=== PATIENT | female | born 1990 | race Caucasian/White ===

== ENCOUNTER 2020-03-26 13:51 | Emergency (ER) | payer SELFPAY ==
[2020-03-26 14:30] VITALS: BP 124/68; PULSE 102; RESP 18; TEMP 36.2; O2SAT 98; BMI 20.1
[2020-03-26 15:24] LABS: Add Urine Microscopic? YES; Bilirubin Urine Neg (Negative); Blood Urine 2+ (Negative); Glucose Urine UA Norm (Normal); Ketones Urine Negative (Negative); Leukocyte Esterase Urine 2+ (Negative); Nitrate Urine Negative (Negative); Protein Urine Neg (Negative); Specific Gravity, Urine 1.015 (1.005-1.030); Sulfosalicylic Acid Urine Trace (Negative); Urine Appearance Cloudy (CLEAR); Urine Color Yellow (Yellow); Urobilinogen Urine Neg (Negative); pH Urine 8 (5-7)
[2020-03-26 15:25] LABS: Add Urine Culture? Yes; Bacteria Urine 3+ /hpf; RBC Urine 15-25 /hpf (0-2); Squamous Epithelial Cell Urine 0-4 /hpf (0-5); WBC Urine >100 /hpf (0-5)
--- NOTE | 2020-03-26 16:13 | CTR_ITS ---
PROCEDURE INFORMATION: Exam: CT Abdomen And Pelvis Without Contrast Exam date and time: 03/26/2020 4:36 PM Age: 29 years old Clinical indication: Abdominal pain; Right; Prior surgery; Surgery date: 6+ months; Surgery type: Appy; Patient HX: C/O R flank pain and burning urination TECHNIQUE: Imaging protocol: Computed tomography of the abdomen and pelvis without contrast. Radiation optimization: All CT scans at this facility use at least one of these dose optimization techniques: automated exposure control; mA and/or kV adjustment per patient size (includes targeted exams where dose is matched to clinical indication); or iterative reconstruction. COMPARISON: US abdomen limited [id number] 02/14/2018 8:19 AM RADIATION DOSE METRICS: Total DLP (mGy-cm): 539.65 FINDINGS: Liver: Small hypodense lesions are seen in segments III and VIII of the liver. The largest lesion measures 19 mm (segment III). Gallbladder and bile ducts: Normal. No calcified stones. No ductal dilation. Pancreas: Normal. No ductal dilation. Spleen: Normal. No splenomegaly. Adrenals: Normal. No mass. Kidneys and ureters: Mild right perinephric and periureteral fat stranding is noted. No renal stone or hydronephrosis. The left kidney appears normal. Stomach and bowel: Unremarkable. No obstruction. No mucosal thickening. Appendix: No evidence of appendicitis. Intraperitoneal space: Unremarkable. No free air. No significant fluid collection. Vasculature: Unremarkable. No abdominal aortic aneurysm. Lymph nodes: Unremarkable. No enlarged lymph nodes. Urinary bladder: Unremarkable as visualized. Reproductive: The uterus and ovaries appear normal. Bones/joints: Unremarkable. No acute fracture. Soft tissues: Unremarkable. CT/CT kidney stone [id number] IMPRESSION: 1. Possible right pyelonephritis, correlate with urinalysis. No renal stone is visualized. 2. Indeterminate hypodense liver lesions. Nonemergent CT or MRI liver protocol may allow further assessment. Radiation Dose CTDIVOL = (mGy): DLP = 539.65 (mGy-cm)
[2020-03-26 16:15] LABS: Anion Gap 15.1 (5-19); Blood Urea Nitrogen 7 mg/dL (6-20); Carbon Dioxide 25 mmol/L (22-29); Chloride 99 mmol/L (98-107); Glomerular Filtration Rate 118.2 mL/min (90-130); Potassium 4.1 mmol/L (3.5-5.1); Sodium 135 mmol/L (136-145)
[2020-03-26 16:16] LABS: Calcium 9.5 mg/dL (8.5-10.5); Glucose 116 mg/dL (65-115); Osmolality Calculated 279 mOsm/kg (285-295)
--- NOTE | 2020-03-26 16:17 | ED_ITS ---
Documented by User: Yara Carver 03/26/20 17:02 HPI - Female Genitourinary General: Chief complaint: Urogenital-Female Stated complaint: POSSIBLE UTI Time Seen by Provider: 03/26/20 14:57 Source: patient Mode of arrival: ambulatory Limitations: no limitations History of Present Illness: MD elicited complaint: dysuria and flank pain Onset (ago): day(s) (2) Location of symptoms: flank Severity: moderate Female Urogenital Radiation: R Flank Severity scale (1-10): 5 Quality of pain: dull and aching Consistency: constant Vaginal discharge: none Vaginal bleeding: none Urinary symptoms: Dysuria and Flank Pain Exacerbating factors: none Relieving factors: none Associated symptoms: Reports fevers/chills; Deny abdominal pain, short of breath, headache(s), nausea, rash, seizures, syncope, vaginal bleeding or vaginal discharge Treatment prior to arrival: none Sexual activity: Yes Patient : No Review of Systems General: Reports: 10 or more systems reviewed and unremarkable except in HPI and below Const: Reports: fever(s); Denies: chills, body aches, change in appetite or change in weight Card: Denies: chest pain, palpitations, irregular heart rhythm or syncope Resp: Denies: dyspnea, productive cough, non-productive cough, wheezing or pain on inspiration GI: Denies: abdominal pain, nausea or vomiting : Reports: flank pain, dysuria, urinary frequency and urinary urgency; Denies: vaginal discharge Musc: Denies: neck pain, back pain, extremity pain or extremity swelling Skin/Breast: Denies: rash Neuro: Denies: headache(s) Psych: Denies: suicidal ideation or homicidal ideation PFS ED PFSH: Family History Grandmother Hypertension maternal Mother Diabetes Thyroid condition Brother Seizure disorder Family/Other Colon cancer Maternal great aunt Breast cancer Maternal great aunt, cousin Patient denies medical problems Denies family history of: Cervical, uterine, ovarian cancer, DVT/PE. 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[place] Additional social history: Well balanced diet Physical Exam Const: COMMON NORMALS: no acute distress, average body habitus, patient oriented x3, no limitations, healthy appearing, alert and well nourished HENMT: COMMON NORMALS: normocephalic, atraumatic, hearing grossly normal bilaterally, external ears normal, EAC's normal, TM's normal bilaterally, Normal external nose present, Normal nasal mucous membranes and turbinates present, moist oral mucous membranes, oropharynx normal, dentition normal and gingiva normal HEAD & SCALP: normocephalic and atraumatic NOSE: Normal external nose present and Normal nasal mucous membranes and turbinates present EXTERNAL EAR: Yes external ears normal EXTERNAL AUDITORY CANAL: EAC's normal TYMPANIC MEMBRANE: TM's normal bilaterally Eye: COMMON NORMALS: Equal, round and reactive pupils present, EOMs intact bilaterally, conjunctivae normal, no scleral icterus, no papilledema, normal visual vargas by confrontation and fundi normal bilaterally CONJUNCTIVA: Yes conjunctivae normal PUPIL: Yes Equal, round and reactive pupils present DIRECT OPHTHALMOSCOPY: Yes no papilledema and Yes fundi normal bilaterally Neck/C-Spine: COMMON NORMALS: full ROM, no lymphadenopathy, supple, no meningeal signs, no JVD, Thyroid normal and No carotid bruits THYROID: Thyroid normal Lymph: LYMPHATIC: no lymphadenopathy noted Chest: COMMONS NORMALS: normal inspection of the chest, normal palpation of entire chest wall, normal inspection of the breasts and normal palpation of the breasts Resp: COMMON NORMALS: normal respiratory effort, No retractions, No use of accessory muscles, clear to auscultation bilaterally and percussion normal AUSCULTATION: clear to auscultation bilaterally PERCUSSION: percussion normal Cardio: COMMON NORMALS: no JVD, regular rate, regular rhythm, S1 normal heart sound present, S2 normal heart sound present, No gallops present (Cardio), No clicks present (Cardio), No murmurs present (Cardio), No rub (Cardio) and Peripheral pulses 2+ throughout RATE: regular rate RHYTHM: regular rhythm HEART SOUNDS: S1 normal heart sound present and S2 normal heart sound present PERIPHERAL PULSES: Peripheral pulses 2+ throughout GI: COMMON NORMALS: Normal to inspection, nondistended, normoactive bowel sounds present, Soft to palpation, non-tender, No hepatosplenomegaly present, no masses and no bruits PALPATION: Yes Soft to palpation and Yes No hepatosplenomegaly present : BLADDER/KIDNEY EXAM: Yes CVA tenderness SPECULUM EXAM - VAGINA: No vaginal bleeding OB/EXTERNAL & SPECULUM: No vaginal bleeding Back/Pelvis: COMMON NORMALS: thoracic and lumbar spine normal to inspection, no thoracic nor lumbar tenderness and thoraco-lumbar ROM normal GENERAL BACK: Yes CVA tenderness CVA tenderness: right Extremity: COMMON NORMALS: normal to inspection, full ROM, capillary refill normal, no joint enlargement, no clubbing, cyanosis or edema, no calf tenderness and no pedal edema Neuro: COMMON NORMALS: patient oriented x3, CN's II-XII intact bilaterally, moves all extremities, no focal motor deficits, no sensory deficits noted, deep tendon reflexes 2+ bilaterally and gait normal SENSORIUM/ORIENTATION: Yes alert MENINGEAL SIGNS: Yes no meningeal signs Psych: COMMON NORMALS: mental status grossly normal, Normal thought process present, cooperative, normal affect, speech normal, activity/motor behavior normal, denies hallucinations, denies homicidal ideation and denies suicidal ideation SPEECH: Yes normal speech THOUGHT PROCESS: Normal thought process present Skin: COMMON NORMALS: no rashes or lesions noted, no wounds, turgor normal, no jaundice, no petechiae and no mottling GENERAL SKIN EXAM: no rashes or lesions noted and turgor normal Course Vital Signs: Vital signs: Vital Signs Temperature 97.2 F L 03/26/20 14:30 Pulse Rate 68 03/26/20 18:51 Respiratory Rate 18 03/26/20 18:51 Blood Pressure 128/74 03/26/20 18:51 Pulse Oximetry 96 03/26/20 18:51 MDM - Female Lab Data: Labs: Lab Results 03/26/20 03/26/20 03/26/20 Range/Units 14:15 14:15 15:31 WBC Cancelled Corrected WBC Cancelled RBC Cancelled Hgb Cancelled Hct Cancelled MCV Cancelled MCH Cancelled MCHC Cancelled RDW Cancelled Plt Count Cancelled MPV Cancelled Gran % Cancelled Neut % (Auto) Cancelled Lymph % (Auto) Cancelled Meagher % (Auto) Cancelled Eos % (Auto) Cancelled Baso % (Auto) Cancelled Neut # (Auto) Cancelled Lymph # (Auto) Cancelled Meagher # (Auto) Cancelled Eos # (Auto) Cancelled Baso # (Auto) Cancelled Absolute Gran (aut o) Cancelled Nucleated RBC % (a uto) Cancelled Nucleated RBCs # Cancelled Sodium (136-145) mmol/L Potassium (3.5-5.1) mmol/L Chloride (98-107) mmol/L Carbon Dioxide (22-29) mmol/L Anion Gap (5-19) BUN (6-20) mg/dL Creatinine (0.5-0.9) mg/dL GFR Calculation (90-130) mL/min Glucose (65-115) mg/dL Calculated Osmolal ity (285-295) mOsm/k g Calcium (8.5-10.5) mg/dL Urine Color Yellow (Yellow) Urine Appearance Cloudy (CLEAR) Urine pH 8 H (5-7) Ur Specific Gravit y 1.015 (1.005-1.030) Urine Protein Neg (Negative) Urine Glucose (UA) Norm (Normal) Urine Ketones Negative (Negative) Urine Blood 2+ H (Negative) Urine Nitrate Negative (Negative) Urine Bilirubin Neg (Negative) Prot Sulfosalicyli c Acd Trace (Negative) Urine Urobilinogen Neg (Negative) mg/dL Ur Leukocyte Nivia ase 2+ H (Negative) Urine RBC 15-25 H (0-2) /hpf Urine WBC >100 H (0-5) /hpf Ur Squamous Epith Cells 0-4 H (0-5) /hpf Amorphous Sediment Not Reportable Urine Bacteria 3+ H (NONE) /hpf Urine HCG, Qual Negative (Negative) 03/26/20 03/26/20 Range/Units 15:31 16:28 WBC 9.4 Corrected WBC RBC 3.85 L Hgb 12.2 Hct 35.7 L MCV 92.7 MCH 31.7 MCHC 34.2 RDW 11.6 L Plt Count 220 MPV 9.2 Gran % Neut % (Auto) 79.8 Lymph % (Auto) 13.1 Meagher % (Auto) 6.2 Eos % (Auto) 0.4 Baso % (Auto) 0.2 Neut # (Auto) 7.51 Lymph # (Auto) 1.2 Meagher # (Auto) 0.6 Eos # (Auto) 0.0 Baso # (Auto) 0.0 Absolute Gran (aut o) Nucleated RBC % (a uto) 0 Nucleated RBCs # 0.0 Sodium 135 L (136-145) mmol/L Potassium 4.1 (3.5-5.1) mmol/L Chloride 99 (98-107) mmol/L Carbon Dioxide 25 (22-29) mmol/L Anion Gap 15.1 (5-19) BUN 7 (6-20) mg/dL Creatinine 0.6 (0.5-0.9) mg/dL GFR Calculation 118.2 (90-130) mL/min Glucose 116 H (65-115) mg/dL Calculated Osmolal ity 279 L (285-295) mOsm/k g Calcium 9.5 (8.5-10.5) mg/dL Urine Color (Yellow) Urine Appearance (CLEAR) Urine pH (5-7) Ur Specific Gravit y (1.005-1.030) Urine Protein (Negative) Urine Glucose (UA) (Normal) Urine Ketones (Negative) Urine Blood (Negative) Urine Nitrate (Negative) Urine Bilirubin (Negative) Prot Sulfosalicyli c Acd (Negative) Urine Urobilinogen (Negative) mg/dL Ur Leukocyte Nivia ase (Negative) Urine RBC (0-2) /hpf Urine WBC (0-5) /hpf Ur Squamous Epith Cells (0-5) /hpf Amorphous Sediment Urine Bacteria (NONE) /hpf Urine HCG, Qual (Negative) Discharge Plan Discharge Patient Disposition: Home Clinical Impression: Pyelonephritis, Cough Condition: Stable Prescriptions: New Tessalon Perles 100 mg capsule 100 mg PO BID PRN (Reason: cough) Qty: 20 RF: 0 levofloxacin 750 mg tablet 750 mg PO DAILY 5 Days Qty: 5 RF: 0 No Action Mavyret 100-40 mg tablet 3 tab PO TID RF: 0 Discharge Orders: Discharge Order (Routine); Ordered 03/26/20 Ordered By: Sarwat Dickerson Referrals: Franki Oconnor MD [Primary Care Provider] - Discharge Diet: Regular Discharge Activity: Resume usual activity Patient Instructions: Acute Pyelonephritis (ED) Activity Restrictions/Additional Instructions: Follow-up with medical provider as directed 7-10 days. Take medications as prescribed. Take [id number] Tylenol or ibuprofen for pain or fevers. Return to the ER or your medical provider if condition worsens. Please read and understand discharge instructions. If any questions, please ask. Discharge Date/Time: 03/26/20 18:53 Sign Out Sign Out Data: Patient Sign Out occurred on 03/26/20 at 17:12. Patient's care was discussed, and care was transferred from to ZACKARY Lucas. Coding Level of Care Code ED Adult [employer] In[employer] for Chg Fwd Exam Comprehensive Documented by User: ZACKARY Lucas 03/26/20 20:12 HPI - Female Genitourinary General: Chief complaint: Urogenital-Female Stated complaint: POSSIBLE UTI Time Seen by Provider: 03/26/20 14:57 History of Present Illness: HPI Narrative: Patient also was complaining to me that she has dry cough. No symptoms of shortness of breath or fevers. Review of Systems Resp: Reports: non-productive cough PFSH ED PFSH: Family History Grandmother Hypertension maternal Mother Diabetes Thyroid condition Brother Seizure disorder Family/Other Colon cancer Maternal great aunt Breast cancer Maternal great aunt, cousin Patient denies medical problems Denies family history of: Cervical, uterine, ovarian cancer, DVT/PE. 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 Physical exam shows a healthy 29-year-old female no acute distress pain. White blood cells were 9.4 and rest of CBC and CMP was unremarkable. UA showed multiple bacteria with many RBCs and WBCs. CT of abdomen showed no kidney stones but did show some pyelonephritis on the right side. Was also noted that she had a hypodense liver lesion and radiologist recommended possible further assessment with an MRI or CT. patient was given a shot of Rocephin while here in the ED and then sent h ome with a prescription for levofloxacin. I informed patient of liver findings mariana with her PCP about further evaluation and imaging to be performed outpatient. Patient was also given some Tessalon Perles for cough. Return to ED precautions given. Follow-up with PCP in 7 to 10 days. Patient understood and agreed with plan. Lab Data: Attestation: I reviewed the patient's lab results. Labs: Lab Results 03/26/20 03/26/20 03/26/20 Range/Units 14:15 14:15 15:31 WBC Cancelled Corrected WBC Cancelled RBC Cancelled Hgb Cancelled Hct Cancelled MCV Cancelled MCH Cancelled MCHC Cancelled RDW Cancelled Plt Count Cancelled MPV Cancelled Gran % Cancelled Neut % (Auto) Cancelled Lymph % (Auto) Cancelled Meagher % (Auto) Cancelled Eos % (Auto) Cancelled Baso % (Auto) Cancelled Neut # (Auto) Cancelled Lymph # (Auto) Cancelled Meagher # (Auto) Cancelled Eos # (Auto) Cancelled Baso # (Auto) Cancelled Absolute Gran (aut o) Cancelled Nucleated RBC % (a uto) Cancelled Nucleated RBCs # Cancelled Sodium (136-145) mmol/L Potassium (3.5-5.1) mmol/L Chloride (98-107) mmol/L Carbon Dioxide (22-29) mmol/L Anion Gap (5-19) BUN (6-20) mg/dL Creatinine (0.5-0.9) mg/dL GFR Calculation (90-130) mL/min Glucose (65-115) mg/dL Calculated Osmolal ity (285-295) mOsm/k g Calcium (8.5-10.5) mg/dL Urine Color Yellow (Yellow) Urine Appearance Cloudy (CLEAR) Urine pH 8 H (5-7) Ur Specific Gravit y 1.015 (1.005-1.030) Urine Protein Neg (Negative) Urine Glucose (UA) Norm (Normal) Urine Ketones Negative (Negative) Urine Blood 2+ H (Negative) Urine Nitrate Negative (Negative) Urine Bilirubin Neg (Negative) Prot Sulfosalicyli c Acd Trace (Negative) Urine Urobilinogen Neg (Negative) mg/dL Ur Leukocyte Nivia ase 2+ H (Negative) Urine RBC 15-25 H (0-2) /hpf Urine WBC >100 H (0-5) /hpf Ur Squamous Epith Cells 0-4 H (0-5) /hpf Amorphous Sediment Not Reportable Urine Bacteria 3+ H (NONE) /hpf Urine HCG, Qual Negative (Negative) 03/26/20 03/26/20 Range/Units 15:31 16:28 WBC 9.4 Corrected WBC RBC 3.85 L Hgb 12.2 Hct 35.7 L MCV 92.7 MCH 31.7 MCHC 34.2 RDW 11.6 L Plt Count 220 MPV 9.2 Gran % Neut % (Auto) 79.8 Lymph % (Auto) 13.1 Meagher % (Auto) 6.2 Eos % (Auto) 0.4 Baso % (Auto) 0.2 Neut # (Auto) 7.51 Lymph # (Auto) 1.2 Meagher # (Auto) 0.6 Eos # (Auto) 0.0 Baso # (Auto) 0.0 Absolute Gran (aut o) Nucleated RBC % (a uto) 0 Nucleated RBCs # 0.0 Sodium 135 L (136-145) mmol/L Potassium 4.1 (3.5-5.1) mmol/L Chloride 99 (98-107) mmol/L Carbon Dioxide 25 (22-29) mmol/L Anion Gap 15.1 (5-19) BUN 7 (6-20) mg/dL Creatinine 0.6 (0.5-0.9) mg/dL GFR Calculation 118.2 (90-130) mL/min Glucose 116 H (65-115) mg/dL Calculated Osmolal ity 279 L (285-295) mOsm/k g Calcium 9.5 (8.5-10.5) mg/dL Urine Color (Yellow) Urine Appearance (CLEAR) Urine pH (5-7) Ur Specific Gravit y (1.005-1.030) Urine Protein (Negative) Urine Glucose (UA) (Normal) Urine Ketones (Negative) Urine Blood (Negative) Urine Nitrate (Negative) Urine Bilirubin (Negative) Prot Sulfosalicyli c Acd (Negative) Urine Urobilinogen (Negative) mg/dL Ur Leukocyte Nivia ase (Negative) Urine RBC (0-2) /hpf Urine WBC (0-5) /hpf Ur Squamous Epith Cells (0-5) /hpf Amorphous Sediment Urine Bacteria (NONE) /hpf Urine HCG, Qual (Negative) Imaging Data: CT Abd/Pel: Attestation: I personally reviewed and interpreted this imaging study as follows: Radiologist's impression: [address] [address] [address] Scan Report Signed Patient: Chaya Manning Unit #: [id number] : 1990 Age/Sex: 29 / F ADM Date: 03/26 Loc: ER Room/Bed: Attending Dr: Ordering Provider/Ordering MD: Yara Carver NP Date of Service: 03/26/20 Procedure(s): CT kidney stone [id number] Accession Number(s): [id number] Report Number: [id number] PROCEDURE INFORMATION: Exam: CT Abdomen And Pelvis Without Contrast Exam date and time: 03/26/2020 4:36 PM Age: 29 years old Clinical indication: Abdominal pain; Right; Prior surgery; Surgery date: 6+ months; Surgery type: Appy; Patient HX: C/O R flank pain and burning urination TECHNIQUE: Imaging protocol: Computed tomography of the abdomen and pelvis without contrast. Radiation optimization: All CT scans at this facility use at least one of these dose optimization techniques: automated exposure control; mA and/or kV adjustment per patient size (includes targeted exams where dose is matched to clinical indication); or iterative reconstruction. COMPARISON: US abdomen limited [id number] 02/14/2018 8:19 AM RADIATION DOSE METRICS: Total DLP (mGy-cm): 539.65 FINDINGS: Liver: Small hypodense lesions are seen in segments III and VIII of the liver. The largest lesion measures 19 mm (segment III). Gallbladder and bile ducts: Normal. No calcified stones. No ductal dilation. Pancreas: Normal. No ductal dilation. Spleen: Normal. No splenomegaly. Adrenals: Normal. No mass. Kidneys and ureters: Mild right perinephric and periureteral fat stranding is noted. No renal stone or hydronephrosis. The left kidney appears normal. Stomach and bowel: Unremarkable. No obstruction. No mucosal thickening. Appendix: No evidence of appendicitis. Intraperitoneal space: Unremarkable. No free air. No significant fluid collection. Vasculature: Unremarkable. No abdominal aortic aneurysm. Lymph nodes: Unremarkable. No enlarged lymph nodes. Urinary bladder: Unremarkable as visualized. Reproductive: The uterus and ovaries appear normal. Bones/joints: Unremarkable. No acute fracture. Soft tissues: Unremarkable. CT/CT kidney stone [id number] IMPRESSION: 1. Possible right pyelonephritis, correlate with urinalysis. No renal stone is visualized. 2. Indeterminate hypodense liver lesions. Nonemergent CT or MRI liver protocol may allow further assessment. Radiation Dose CTDIVOL = (mGy): DLP = 539.65 (mGy-cm) Dictated By: Luis Antonio Steinberg MD Signed By: Luis Antonio Steinberg MD Signed Date/Time: 03/26/201757 DD/ 56 Discharge Plan Discharge Patient Disposition: Home Clinical Impression: Pyelonephritis, Cough Condition: Stable Prescriptions: New Tessalon Perles 100 mg capsule 100 mg PO BID PRN (Reason: cough) Qty: 20 RF: 0 levofloxacin 750 mg tablet 750 mg PO DAILY 5 Days Qty: 5 RF: 0 No Action Mavyret 100-40 mg tablet 3 tab PO TID RF: 0 Discharge Orders: Discharge Order (Routine); Ordered 03/26/20 Ordered By: Sarwat Dickerson Referrals: Franki Oconnor MD [Primary Care Provider] - Discharge Diet: Regular Discharge Activity: Resume usual activity Patient Instructions: Acute Pyelonephritis (ED) Activity Restrictions/Additional Instructions: Follow-up with medical provider as directed 7-10 days. Take medications as prescribed. Take [id number] Tylenol or ibuprofen for pain or fevers. Return to the ER or your medical provider if condition worsens. Please read and understand discharge instructions. If any questions, please ask. Discharge Date/Time: 03/26/20 18:53 Sign Out Sign Out Data: Patient Sign Out occurred on 03/26/20 at 17:12. Patient's care was discussed, and care was transferred from to ZACKARY Lucas. Coding Level of Care Code ED Adult [employer] Instructor for Chg Fwd Exam Comprehensive
[2020-03-26 16:33] LABS: Basophils % 0.2 %; Eosinophils % 0.4 %; Hematocrit 35.7 % (37.0-47.0); Hemoglobin 12.2 g/dL (11.5-15.3); Lymphocytes # 1.2 10^3/uL (0.8-4.8); Lymphocytes % 13.1 %; Mean Corpuscular HGB Conc 34.2 g/dL (30.0-36.0); Mean Corpuscular Hemoglobin 31.7 pg (28.0-34.0); Mean Corpuscular Volume 92.7 fL (81-99); Mean Platelet Volume 9.2 fL (7.4-10.4); Monocytes # 0.6 10^3/uL (0.2-0.9); Monocytes % 6.2 %; Neutrophils # 7.51 10^3/uL (1.8-7.7); Neutrophils % 79.8 %; Nucleated Red Blood Cells % 0 %; Platelet Count 220 10^3/cmm (130-400); Red Blood Count 3.85 10^6/uL (4.1-5.3); Red Cell Distribution Width 11.6 % (12.1-15.1); White Blood Count 9.4 10^3/uL (4.0-10.0)
[2020-03-26] MEDS: ketorolac 30 mg/mL INJ IM (17:03)
[2020-03-26 18:51] VITALS: BP 128/74; PULSE 68; RESP 18; O2SAT 96
== END 2020-03-26 18:53 | disposition home or self-care (01) ==
PROVIDERS: Family Medicine; Registered Nurse; Emergency Provider Physician Assistant; PCP Internal Medicine
DX: N12 Tubulo-interstitial nephritis, not specified as acute or chronic (principal); R05 Cough; F17.210 Nicotine dependence, cigarettes, uncomplicated
CPT/HCPCS: 12345; 36415; 74176; 80048; 81001; 81025; 85025; 87077; 87086; 87186; 96372; 96375; 99282; 99283; J0696; J1885

== ENCOUNTER → 2020-08-15 10:38 | Outpatient (BNVA) | payer SELFPAY | PROVIDERS: PCP Internal Medicine; Visit Provider Nurse Practitioner | DX: J02.0 Streptococcal pharyngitis (principal) | CPT/HCPCS: 87880 ==